=== PATIENT | male | born 1945 | race Caucasian/White ===

== ENCOUNTER 2022-12-19 09:55 | Outpatient (AMB) | payer MEDICARE, BC, SELFPAY ==
[2022-12-19 09:58] VITALS: PULSE 58; O2SAT 100; BMI 22.2
--- NOTE | 2022-12-19 09:58 | A.OFFVIS_ITS ---
Intake Vital Signs 12/19/22 09:58 Height 5 ft 9 in Weight 150 lb 8 oz BMI 22.2 Pulse 58 Pulse Source Pulse Oximeter Pulse Oximetry (%) 100 Oxygen Delivery Method Room Air Intake Visit Reasons: NPV-for ? Parkinson Intake Note: Pt presents with his as a NPV for question of Parkinsons. Accompanied by: Spouse Allergies tamsulosin Allergy (Unknown, Verified 12/19/22 10:04) Dizziness fluticasone [From Flovent HFA] Adverse Reaction (Unknown, Verified 12/19/22 10:04) Unknown HPI HPI Comments History of Present Illness Details Right-handed 77-yr-old male presents for new pt evaluation of movement disorder- ? Parkinson's. Pt is accomapnied by his Angela. He reports a few months ago, he developed a right 1st and 2nd fine tremor at rest and when walking, which raised their concern for PD. ADL status: No issues but it is taking more time to do shirt buttons IADL status: Drives. Manages finances ok Fine-motor skills: No other issues Micrographia: Seems smaller Hypophonia: Has not noticed any changes Hyposmia: Denies Dysphagia: May have some difficulty at times swallowing beef- even if chews well. Has always had difficulty w/ pills. Drooling: Some during the day and night Orthostatic lightheadedness: Denies Constipation: Some- manages this ok Slowness: Tying his shoes is slower Freezing episodes: May feel stuck- especially when he is trying to empty his indwelling f/c (temporary following procedure) Tremor: Denies other tremor, twitch. Stiffness: Endorses neck and back stiffness- ahs never been too flexible Gait changes: Just the right hand tremor. His note sthat his arms are not swinging as much Falls: Pt reports he had a fall last year- he describes this as briefly pasisng out while outside and falling backwards. He states he has had extensive work-up which was normal. Although he can be bradycardic. He is f/b Dr jolly Méndez at [facility] cardiology. No further falls. Sleep difficulty: Sleeps well, but is often tired/fatigued. About 30 yrs ago- did have some parasomnias- had normal in-lab PSG at that time. But denies any recent parasomnias or vivid dreams. He is scheduled for a sleep study in Sep. Can have nocturnal leg cramps- he does have venous insufficiency. Memory impairment: Denies any issues Hallucinations: Denies Usual exercise: He takes regular walks. Was going to start going back to the gym- when the prostate issues arose. Other: he has intermittent pins and needle in his bilat toes/feet (symmetric)- attributes to his aquired type I diabetes. No weakness, numbness. History of concussion/head injury? None History of neuroleptic (metoclopramide/antipsychotics) use? Denies, however review of [facility] does show pt was tried on Latuda while tapering Duloxetine in May 2022- however he apparently did not tolerate- had fever and period of AMS w/o clonus or other neuro s/s. Does continue to take Duloxetine now- has taken several anti-depressants since 2000. Has had TMS in the last year. F/b psychiatry- Dr Batista- and a therapist. History of psychiatric hospitalizations? None History of occupational chemical exposures? 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 History of substance abuse: Has not drank alcohol in 12 yrs- was slowly increasing alcohol intake and drinking 2-3 beers/wine per day. he had had pancreatitis and required a whipple procedure- and after this he stopped alcohol intake completely. Family history of movement disorders? None Family history of mood disorder or suicide? None 05/17/22, [facility], Head CT w/o: FINDINGS: Pelt Grader view findings, lines and tubes: None. BRAIN AND EXTRA-AXIAL SPACES: No parenchymal hemorrhage, midline shift, or mass effect. Connor-white matter differentiation is well preserved. No acute infarct. Negative insular ribbon and hyperdense vessel signs. Mild prominence of the ventricles and sulci consistent with parenchymal volume loss. No white matter lesions. No subarachnoid hemorrhage. No subdural or epidural collection. CALVARIUM, SKULL BASE, AND SOFT TISSUES: No fractures or suspicious bony lesions. The paranasal sinuses and mastoid air cells are clear. Visualized orbits and globes are intact. Bilateral lens replacements. The extracranial soft tissues are unremarkable. IMPRESSION: No acute intracranial pathology. 05/17/22, [facility], head and neck CTA: FINDINGS: CTA OF THE NECK: Arch: There is a three vessel aortic arch. There is mild atherosclerotic plaque of the aortic arch, but origins of the supra aortic vessels are patent. Right carotid system: The common carotid and cervical internal carotid arteries are patent. There is calcified atherosclerotic plaque at the carotid bifurcation, but no ICA stenosis (0%) by NASCET criteria. Left carotid system: The common carotid and cervical internal carotid arteries are patent. There is calcified atherosclerotic plaque at the carotid bifurcation, but no ICA stenosis (0%) by NASCET criteria. There is a co-dominant vertebral artery system. Right vertebral: There is calcified atherosclerotic plaque at the origin causing mild stenosis. There is no dissection or aneurysm. Left vertebral: There is calcified atherosclerotic plaque at the origin but no significant stenosis. Other: Soft tissues and bones: No evidence of lymphadenopathy or mass. The thyroid is unremarkable. Visualized lungs are blurred by motion artifact, without significant superimposed airspace opacity. Multilevel degenerative changes of the spine are noted, without acute osseous abnormality. CTA OF THE HEAD: Anterior circulation: Bilateral intracranial ICAs demonstrate atherosclerotic calcification, without stenosis. Bilateral HERLINDA and MCA branches are patent. There is no significant stenosis, proximal cutoff, aneurysm, or vascular malformation. Posterior circulation: Bilateral intracranial vertebral arteries, the basilar artery, and bilateral superior cerebellar and posterior cerebral branches are patent. There is no significant stenosis, proximal cutoff, aneurysm, or vascular malformation. Veins: Major d ural venous sinuses are patent. Other: Soft tissues and bones: No midline shift or effacement of the basal cisterns. No space-occupying hemorrhage. No territorial loss of connor-white matter differentiation. There have been lens extractions bilaterally. No significant opacification in the paranasal sinuses or mastoid air cells. IMPRESSION: No proximal occlusion or high grade stenosis in the major arteries of the head and neck. 03/01/2021, [facility], Brain MRI w/o: FINDINGS: The ventricles, cisterns and sulci appear slightly prominent consistent with mild generalized age related atrophy. No hydrocephalus. There is no acute intracranial hemorrhage, tumor or infarct. A few punctate areas of hyperintense T2/FLAIR signals are seen in the frontal white matters bilaterally. The findings are nonspecific and could represent chronic small vessel ischemic disease. Please correlate clinically. Status post bilateral lens extractions. There are normal flow-voids within major intracranial vessels. Minimal mucosal thickening within bilateral inferior maxillary sinuses and ethmoid sinuses as well as bilateral mastoid air cells. IMPRESSION: No acute pathology is seen in the brain. Mild generalized age- related atrophy. Minimal bifrontal white matter disease is nonspecific and could represent chronic small vessel ischemic disease. . [facility] Medical History (Updated 12/19/22 @ 14:02 by MAURICE Lal) Acute pancreatitis Bilateral direct inguinal hernia Colon polyps Depression Erectile dysfunction Hypothyroidism Pancreatic insufficiency Right femoral fracture Seizure Type 2 diabetes mellitus Urinary retention Vitamin D deficiency Surgical History History of ventral hernia repair History of Whipple procedure Hx of cataract surgery Hx of colonoscopy Hx of inguinal hernia surgery Family History Father H/O ETOH abuse Type 2 diabetes mellitus Mother Lung cancer Social History (Updated 12/19/22 @ 10:08 by Kamila Schafer CMA) Alcohol intake: never Patient Tobacco Use Status: Former Tobacco user Review of Systems Const All systems reviewed & are unremarkable except as noted in HPI and below ENT Details: [facility] Physical Exam Vital Signs: Last Vital Signs Pulse 58 12/19/22 09:58 Pulse Ox 100 12/19/22 09:58 Oxygen Delivery Method Room Air 12/19/22 09:58 BMI result Body Mass Index 22.2 Const General: cooperative and no acute distress Orientation/consciousness: oriented to person, oriented to place and oriented to time HEENT Head: Yes normocephalic Resp Effort & Inspection: normal respiratory effort and able to speak in complete sentences Cardio Rate: regular rate Rhythm: regular rhythm Neuro Other: Expression: Mild decreased facial expression Writing: Small, legible Voice: Intact Tremor: Very mild right 1st/2nd tremor during FFM, very mild BUE kinteic tremor on finger-nose w/o dysmetria Tone: BUE tone, mild, R >L Dyskinesia: None FFM: Mildly decreased, R > L Foot taps: Mildly decreased RLE Postural stability- Pt would have fallen back on pull-test Gait: Stands easily, decreased BUE arm swing- more pronounced on right Psych: Pleasant affect General: oriented to person, oriented to place and oriented to time Cranial nerves: Yes CN's II-XII intact bilaterally Cognition (Neuro): normal cognition Motor exam (neuro): 5/5 motor strength present throughout Deep tendon reflexes (DTR's): Right triceps reflex intensity grade: 2+, Left triceps reflex intensity grade: 2+, Rt Biceps (C5, C6): 2+, Left biceps reflex intensity grade: 2+, Right brachioradialis reflex intensity grade: 2+, Left brachioradialis reflex intensity grade: 2+, Right patellar reflex intensity grade: 2+, Left patellar reflex intensity grade: 2+, Right ankle reflex intensity grade: 2+ and Left ankle reflex intensity grade: 2+ Psych Mental Status: mental status grossly normal Speech and movement: Clear speech present Affect: normal affect Attitude: cooperative Thought process: Normal thought process present Assessment & Plan Assessment & Plan (1) Parkinson's disease: Comment: Initial s/s 2022 w/ right 1st/2nd finger tremor Code(s): G20 - Parkinson's disease (2) Tremor: Code(s): R25.1 - Tremor, unspecified (3) Fatigue: Code(s): R53.83 - Other fatigue Plan Reviewed head CT, head/neck CTA, brain MRI reports- no findings to account for pt's movement d/o s/s. Discussed that pt's s/s- asymmetric right handed tremor, micrographia, difficulty w/ buttons, gait changes, mild bradykinesia, postural instability- likely is c/w a dx of early Parkinson's. I do not believe that pt's exposure to Latuda was to an extent which may have resulted in a neuroleptic induced Parkinsonism. No dopaminergic tx indicated at this time. Sleep study as scheduled. 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 Information given on local and national Parkinson's resources. 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 Pt seen in collaboration w/ Dr Karrie Monet f/u in 3 months or sooner prn. Coding Level of Care Code New Pt Level 4 (76255) Diagnoses Parkinson's disease G20 Tremor R25.1 Fatigue R53.83
== END 2022-12-19 11:36 | disposition home or self-care (01) ==
PROVIDERS: Visit Provider Nurse Practitioner Family
DX: G20 Parkinson's disease (principal); R53.83 Other fatigue
CPT/HCPCS: 99204

== ENCOUNTER → 2022-12-19 09:55 | Outpatient (BNVA) | payer BC, SELFPAY | PROVIDERS: Visit Provider Nurse Practitioner Family ==

== ENCOUNTER 2023-04-02 10:53 | Outpatient (AMB) | payer MEDICARE, BC, SELFPAY ==
[2023-04-02 11:00] VITALS: BP 134/82; PULSE 65; O2SAT 98; BMI 22.1
--- NOTE | 2023-04-02 11:00 | A.OFFVIS_ITS ---
Intake Vital Signs 04/02/23 11:00 Height 5 ft 9 in Weight 150 lb BMI 22.1 BP 134/82 Blood Pressure Location Rt brachial Position Sitting Pulse 65 Pulse Source Pulse Oximeter Pulse Oximetry (%) 98 Oxygen Delivery Method Room Air Intake Visit Reasons: 3M FOLLOW UP-Confirmed Intake Note: Patient presents for 3 month follow up. Patient states I'm tired all the time my is concerned of my depression,I've doubled my carbidopa medication form half the dose to full dose twice a day but I don't see any difference Allergies tamsulosin Allergy (Unknown, Verified 04/02/23 11:04) Dizziness fluticasone [From Flovent HFA] Adverse Reaction (Unknown, Verified 04/02/23 11:04) Unknown HPI HPI Comments History of Present Illness Details 78-yr-old male presents for f/u visit, a ccompanied by his . Pt denies any significant interval medical history changes. Pt's current PD medication regimen: CD-LD 25-100mg 1 tab bid. Since, the last visist, pt has started on CD-LD initially 1/2 tab bid now 1 tab bid. Pt only reports that he has had a very slight decrease in stiffness. notes imporved gait stride, improved arm swing. ADL's: Ind Swallowing: None Drooling: Not recently Orthostatic lightheadedness: None Constipation: Yes, manages w/ a stool softener Freezing: Not recently Stiffness: Sometimes he is noticing less stiffness, it is easier to get out of the car Tremor: Had an episode of having BUE rest tremor- while he had a UTI. But usually just RUE tremor Falls: None Hallucinations: None Memory: Intact Sleep: Ok Exercise: Has started to exercise, but then the recent UTI made him pause [facility] Medical History (Updated 12/19/22 @ 14:02 by MAURICE Lal) Right femoral fracture Urinary retention Erectile dysfunction Vitamin D deficiency Hypothyroidism Pancreatic insufficiency Seizure Type 2 diabetes mellitus Acute pancreatitis Bilateral direct inguinal hernia Depression Colon polyps Surgical History (Updated 04/02/23 @ 11:06 by JAYCOB Padron) S/P TURP Hx of colonoscopy Hx of cataract surgery Hx of inguinal hernia surgery History of ventral hernia repair History of Whipple procedure Family History Father H/O ETOH abuse Type 2 diabetes mellitus Mother Lung cancer Social History Alcohol intake: never Patient Tobacco Use Status: Former Tobacco user Review of Systems Const All systems reviewed & are unremarkable except as noted in HPI and below Physical Exam Vital Signs: Last Vital Signs Pulse 65 04/02/23 11:00 BP 134/82 04/02/23 11:00 Pulse Ox 98 04/02/23 11:00 Oxygen Delivery Method Room Air 04/02/23 11:00 BMI result Body Mass Index 22.1 Const General: cooperative and no acute distress Resp Effort & Inspection: normal respiratory effort and able to speak in complete sentences Neuro Other: Expression: Mild decreased facial expression Voice: Intact Tremor: No visible tremor today Tone: BUE tone, mild, R >L Dyskinesia: None FFM: Mildly decreased, R > L Foot taps: Mildly decreased RLE Gait: Stands easily, decreased BUE arm swing- more pronounced on right Psych: Pleasant affect General: oriented to person, oriented to place and oriented to time Assessment & Plan Assessment & Plan (1) Parkinson's disease: Comment: Initial s/s 2022 w/ right 1st/2nd finger tremor Code(s): G20 - Parkinson's disease (2) Tremor: Code(s): R25.1 - Tremor, unspecified (3) Fatigue: Code(s): R53.83 - Other fatigue Plan Continue CD-LD 25-100mg 1 tab bid- reviewed optimal timing of dosing is at least 30-45 minutes before protein intake. Will f/u on out-side sleep study results. Increase physical activity- through the [facility] PD programs or with his staff trainer at [employer]. ? f/u in 3 months or sooner prn. Coding Level of Care Code Est Pt Level 4 (84440) Diagnoses Parkinson's disease G20 Tremor R25.1 Fatigue R53.83
== END 2023-04-02 12:04 | disposition home or self-care (01) ==
PROVIDERS: PCP Internal Medicine; Visit Provider Nurse Practitioner Family
DX: G20.A1 Parkinson's disease without dyskinesia, without mention of fluctuations (principal); R53.83 Other fatigue
CPT/HCPCS: 99214

== ENCOUNTER → 2023-04-02 10:53 | Outpatient (BNVA) | payer BC, SELFPAY | PROVIDERS: PCP Internal Medicine; Visit Provider Nurse Practitioner Family ==

== ENCOUNTER 2023-07-11 07:49 | Outpatient (AMB) | payer MEDICARE, BC, SELFPAY ==
--- NOTE | 2023-07-11 07:58 | MHC.OFFVIS ---
Intake Vital Signs 07/11/23 08:03 Height 5 ft 9 in Weight 147 lb BMI 21.7 BP 126/74 Blood Pressure Location Rt brachial Position Sitting Pulse 66 Pulse Source Pulse Oximeter Pulse Oximetry (%) 100 Oxygen Delivery Method Room Air Intake Visit Reasons: 3M follow up-Confirmed Intake Note: Patient presents for 3 month follow up. Im the same I guess Allergies tamsulosin Allergy (Unknown, Verified 07/11/23 08:10) Dizziness fluticasone [From Flovent HFA] Adverse Reaction (Unknown, Verified 07/11/23 08:10) Unknown HPI HPI Comments History of Present Illness Details 78-yr-old male presents for f/u visit, accompanied by his . Pt denies any significant interval medical history changes. Pt's current PD medication regimen: CD-LD 25-100mg 1 tab bid. Pt wonders about PD med tx- such as expected duration of effect, long-term efficacy. He has met othe rpeople w/ PD and has noted that each person's emd tx is a bit different. Wonders about DBS. ADL's: Ind Swallowing: None Drooling: Not recently Orthostatic lightheadedness: None Constipation: Yes, manages w/ a stool softener Freezing: Not recently Stiffness: Has had some lower back non-radiating stiffness. Tremor: Has rare RUE tremor- sometimes left thumb tremor. Falls: None Hallucinations: None Memory: Intact Sleep: Ok Exercise: Has started the PD exercise class at the [facility] and a strength training class in [place]. [facility] Medical History (Updated 07/13/23 @ 21:24 by MAURICE Lal) Parkinson's disease Right femoral fracture Urinary retention Erectile dysfunction Vitamin D deficiency Hypothyroidism Pancreatic insufficiency Seizure Type 2 diabetes mellitus Acute pancreatitis Bilateral direct inguinal hernia Depression Colon polyps Surgical History S/P TURP Hx of colonoscopy Hx of cataract surgery Hx of inguinal hernia surgery History of ventral hernia repair History of Whipple procedure Family History Father H/O ETOH abuse Type 2 diabetes mellitus Mother Lung cancer Social History Alcohol intake: never Patient Tobacco Use Status: Former Tobacco user Review of Systems Const All systems reviewed & are unremarkable except as noted in HPI and below Physical Exam Vital Signs: Last Vital Signs Pulse 66 07/11/23 08:03 BP 126/74 07/11/23 08:03 Pulse Ox 100 07/11/23 08:03 Oxygen Delivery Method Room Air 07/11/23 08:03 BMI result Body Mass Index 21.7 Const General: cooperative and no acute distress Resp Effort & Inspection: normal respiratory effort and able to speak in complete sentences Neuro Other: General: A&O x's 3 Expression: Mild decreased facial expression Voice: Intact Tremor: No visible tremor today Tone: BUE tone, mild, R >L Dyskinesia: None FFM: Mildly decreased, R > L Foot taps: Mildly decreased RLE Gait: Stands easily, decreased BUE arm swing- more pronounced on right, steady gait Psych: Pleasant affect Assessment & Plan Assessment & Plan (1) Tremor: Code(s): R25.1 - Tremor, unspecified (2) Rigidity: Code(s): R29.898 - Other symptoms and signs involving the musculoskeletal system (3) Parkinson's disease without dyskinesia: Comment: Initial s/s 2022 w/ right 1st/2nd finger tremor Code(s): G20.A1 - Parkinson's disease without dyskinesia, without mention of fluctuations Plan Answered pt's questions regrading PD medication- discussed duration and efficacy depends on the individual patient, the stage of Parkinsons's. Encouraged to review PD resources such as the [employer]: [employer] patient education book. Continue CD-LD 25-100mg 1 tab bid. Will review HST when results available. Continue increased physical activity- through the [facility] PD programs, the senior center, or with his personal lines agent at [employer]. Futire considerations- increasing CD-LD if stiffness persists. f/u in 3 months or sooner prn. Coding Level of Care Code Est Pt Level 4 (02111) Diagnoses Tremor R25.1 Rigidity R29.898 Parkinson's disease without dyskinesia G20.A1
[2023-07-11 08:03] VITALS: BP 126/74; PULSE 66; O2SAT 100; BMI 21.7
== END 2023-07-11 09:24 | disposition home or self-care (01) ==
PROVIDERS: PCP Internal Medicine; Visit Provider Nurse Practitioner Family
DX: G20.A1 Parkinson's disease without dyskinesia, without mention of fluctuations (principal); R29.898 Other symptoms and signs involving the musculoskeletal system
CPT/HCPCS: 99214

== ENCOUNTER → 2023-07-11 07:49 | Outpatient (BNVA) | payer BC, SELFPAY | PROVIDERS: PCP Internal Medicine; Visit Provider Nurse Practitioner Family ==

== ENCOUNTER 2023-10-14 14:50 | Outpatient (AMB) | payer MEDICARE, SELFPAY ==
--- NOTE | 2023-10-14 15:06 | MHC.OFFVIS ---
Vital Signs 10/14/23 15:24 Height 5 ft 9 in Weight 143 lb 2 oz BMI 21.1 BP 124/70 Blood Pressure Location Lt brachial Position Sitting Pulse 67 Pulse Source Pulse Oximeter Pulse Oximetry (%) 100 Oxygen Delivery Method Room Air Intake Visit Reasons: 3M follow up Intake Note: Patient presents for 3 months f/u. Still having stiffness on lower legs and arms. Wondering if the medication Carbidopa-Levodopa is working. Not sure how I should be feeling with the medication. Still having overall feeling of fatigue. Allergies tamsulosin Allergy (Unknown, Verified 10/14/23 15:16) Dizziness fluticasone [From Flovent HFA] Adverse Reaction (Unknown, Verified 10/14/23 15:16) Unknown Medication List - Last Reconciled 10/14/23 by MAURICE Lal balsalazide 2,250 mg PO TID carbidopa-levodopa 25-100 mg 1 tab PO BID 30 days cholecalciferol (vitamin D3) 75 mcg PO DAILY cyanocobalamin (vitamin B-12) ER 2,000 mcg PO DAILY escitalopram oxalate 5 mg PO DAILY finasteride 5 mg PO DAILY folic acid 1 mg PO DAILY [id number]-[id number] 12,000-38,000 -60,000 unit (Creon) 2 caps PO TID lisinopril 10 mg PO DAILY HPI Comments Details: 78-yr-old male presents for f/u visit, accompanied by his . Pt reports he has a current congested cough- seen by PCP and was recently started on Prednisone. Pt's primary concerns are: He notices stiffness and fatigue. Pt's current PD medication regimen: CD-LD 25-100mg 1 tab bid. ADL's: Ind Swallowing: None Drooling: Not recently Orthostatic lightheadedness: May only notice when he is working out during his gym workouts- does take fluids which helps. Constipation: This is better now. : No issues Freezing: Not noticing recently Stiffness: Stable- more so in legs and lower back non-radiating stiffness. Tremor: Has rare RUE tremor- right thumb tremor. Falls: None Hallucinations: None Mood: Can feel frustrated- r/t uncertainties of PD dx. Memory: Intact. Does crosswords daily, reads everyday. Some word finding difficulties. Sleep: Ok. Sleeps from 10pm to 6-7am. Takes a daily nap. Can feel fatigued. Exercise: Has is doing PD exercise class at the [facility] and a strength training class in [place]. He is taking 2 mile walks a few times a week. [facility] Medical History (Updated 07/13/23 @ 21:24 by MAURICE Lal) Parkinson's disease Right femoral fracture Urinary retention Erectile dysfunction Vitamin D deficiency Hypothyroidism Pancreatic insufficiency Seizure Type 2 diabetes mellitus Acute pancreatitis Bilateral direct inguinal hernia Depression Colon polyps Surgical History S/P TURP Hx of colonoscopy Hx of cataract surgery Hx of inguinal hernia surgery History of ventral hernia repair History of Whipple procedure Family History Father H/O ETOH abuse Type 2 diabetes mellitus Mother Lung cancer Social History Alcohol intake: never Patient Tobacco Use Status: Former Tobacco user Review of Systems Const All systems reviewed & are unremarkable except as noted in HPI and below Physical Exam Vital Signs: Last Vital Signs Pulse 67 10/14/23 15:24 BP 124/70 10/14/23 15:24 Pulse Ox 100 10/14/23 15:24 Oxygen Delivery Method Room Air 10/14/23 15:24 BMI result Body Mass Index 21.1 Const General: cooperative and no acute distress Resp Effort & Inspection: normal respiratory effort and able to speak in complete sentences Neuro Other: General: A&O x's 3 Expression: Mild decreased facial expression Voice: Intact Tremor: No visible tremor today Tone: BUE tone, mild, R >L Dyskinesia: None FFM: Mildly decreased, R > L Foot taps: Mildly decreased RLE Gait: Stands easily, decreased BUE arm swing- more pronounced on right, steady gait Psych: Pleasant affect Assessment & Plan Assessment & Plan (1) Parkinson's disease without dyskinesia: Comment: Initial s/s 2022 w/ right 1st/2nd finger tremor Code(s): G20.A1 - Parkinson's disease without dyskinesia, without mention of fluctuations Category: Medical (2) Fatigue: Code(s): R53.83 - Other fatigue Category: Medical (3) Rigidity: Code(s): R29.898 - Other symptoms and signs involving the musculoskeletal system Category: Medical (4) Tremor: Code(s): R25.1 - Tremor, unspecified Category: Medical Plan Reviewed indications for DBS- pt is currently not a candidate as he does not have unpredictable off-times. Increase CD-LD 25-100mg from 1 tab bid to 1 tab tid. Pt may take the next week to identify if there are specific times he is more stiff. this may also help word finding difficulties. For fatigue- Will review HST when results available. May take daily nap. May try OTC vit B complex. Continue increased physical activity- through the [facility] PD programs, the senior center, or with his personal support worker at [employer]. ? f/u in 6 months or sooner prn. Medications: Changed From carbidopa-levodopa 25-100 mg take w/ a cracker 30 minutes before breakfast and dinner, 1 tab PO BID 30 days 60 tabs 6RF To carbidopa-levodopa 25-100 mg take w/ a cracker 30 minutes before protein 1 tab PO TID 30 days 90 tabs 6RF Coding Level of Care Code Est Pt Level 4 (91347) Diagnoses Parkinson's disease without dyskinesia G20.A1 Fatigue R53.83 Rigidity R29.898 Tremor R25.1
[2023-10-14 15:24] VITALS: BP 124/70; PULSE 67; O2SAT 100; BMI 21.1
== END 2023-10-14 16:14 | disposition home or self-care (01) ==
PROVIDERS: PCP Internal Medicine; Visit Provider Nurse Practitioner Family
DX: G20.A1 Parkinson's disease without dyskinesia, without mention of fluctuations (principal); R53.83 Other fatigue; R29.898 Other symptoms and signs involving the musculoskeletal system
CPT/HCPCS: 99214

== ENCOUNTER → 2023-10-14 14:50 | Outpatient (BNVA) | payer BC, SELFPAY | PROVIDERS: PCP Internal Medicine; Visit Provider Nurse Practitioner Family ==